=== PATIENT | female | born 2000 | race Caucasian/White ===

== ENCOUNTER 2020-03-28 07:11 | Outpatient (REF) | payer OTHER, SELFPAY ==
[2020-03-28 11:27] LABS: MANUAL DIFF FLAG SCAN; PLT CLUMP 1; SCAN SMEAR FLAG 1
[2020-03-28 11:29] LABS: Basophils Percent Auto 0.4 % (0-2); Eosinophils Absolute Auto 0.1 X10*3/uL (0.0-0.4); Imm Gran Abs Auto 0.02 X10*3/uL (0.00-0.03); Imm Gran Pct Auto 0.3 % (0.0-0.4); Lymphocytes Absolute Auto 1.4 X10*3/uL (1.2-4.9); Lymphocytes Percent Auto 17.8 % (20-40); Mean Corpuscular HGB Conc 32.5 g/dl (31.0-35.0); Mean Corpuscular Hemoglobin 30.7 pg (27.0-33.0); Mean Corpuscular Volume 94.3 fL (80-98); Mean Platelet Volume 9.3 fL (9.4-12.3); Monocytes Absolute Auto 0.7 X10*3/uL (0.1-1.2); Monocytes Percent Auto 9.4 % (2-11); Neutrophils Absolute Auto 5.5 X10*3/uL (2.0-8.3); Neutrophils Percent Auto 71.1 % (45-73); Red Blood Count 4.24 X10*6/uL (4.20-5.50); Red Cell Distribution Width 12.1 % (11.0-16.0); White Blood Count 7.8 X10*3/uL (4.8-10.8)
[2020-03-28 11:57] LABS: Alanine Aminotransferase 11 U/L (0-31); Anion Gap 12 (12-20); Aspartate Amino Transferase 16 U/L (5-31); Blood Urea Nitrogen 11 mg/dL (9-16); Calcium 9.3 mg/dL (8.4-10.2); Carbon Dioxide 28 mmol/L (22-29); Chloride 104 mmol/L (96-108); Cholesterol 127 mg/dL; Estimated Glomerular Filt Rate > 60; Glucose Fasting 79 mg/dL (60-99); HDL Cholesterol 47 mg/dL; LDL Cholesterol Calculated 65 mg/dl; Potassium 4.4 mmol/l (3.3-5.1); Sodium 140 mmol/L (135-145); Triglycerides 76 mg/dL
[2020-03-28 12:15] LABS: SLIDE REVIEW VERIFIED
[2020-03-28 12:20] LABS: TSH reflex Free T4 1.78 mIU/mL (0.32-4.0)
[2020-03-28 13:12] LABS: Vitamin B12 334 pg/mL (200-900)
== END 2020-03-28 07:12 | disposition home or self-care (01) ==
LOC: HO.HMGCLDS 07:11
PROVIDERS: PCP Internal Medicine; Visit Provider Internal Medicine
DX: Z00.00 Encounter for general adult medical examination without abnormal findings (principal); R63.6 Underweight; I10 Essential (primary) hypertension; Z78.9 Other specified health status
CPT/HCPCS: 36415; 80048; 80061; 82607; 84443; 84450; 84460; 85025

== ENCOUNTER 2022-12-24 10:12 | Outpatient (AMB) | payer BC, SELFPAY ==
--- NOTE | 2022-12-24 10:15 | MHC.OFFWIV ---
Intake Vital Signs 12/24/22 10:17 Height 5 ft 3 in Weight 108 lb BMI 19.1 BP 98/56 L Blood Pressure Location Rt brachial Position Sitting Pulse 72 Pulse Source Pulse Oximeter Temp 98.9 F Temp Source Temporal Artery Scan Pulse Oximetry (%) 99 Oxygen Delivery Method Room Air Intake Visit Reasons: Ep, Sore throat Intake Note: Patient here for bad sore throat for a couple days. 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 Patient Tobacco Use Status: Never used Tobacco Allergies penicillin G Allergy (Unknown, Verified 12/24/22 10:30) hives penicillin V Allergy (Unknown, Verified 12/24/22 10:30) Hives Do you need a note to return to daycare/school/sports/work: Yes HPI HPI Comments History of Present Illness Details Here today with complaints of sore throat that started on Thursday. 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 The kids also had sore throats. Unsure if they were strep positive her not. In addition to the sore throat is having painful swallowing and a cough. Reports her cough is worse at night is keeping her up. She did have a low-grade temp of 99.3 degrees on Thursday. She denies history of asthma. Has been using cough drops to help with very minor relief. She reports she is up-to-date on vaccines. She denies chills, ear pain, runny nose, abdominal pain. [facility] Medical History Depression with anxiety History of ADHD Strict vegetarian diet Underweight Surgical History History of placement of ear tubes Family History Father Medical history non-contributory Mother HTN (hypertension) ADHD Anxiety Depression Substance use disorder Maternal Grandmother Breast cancer Social History (Updated 03/29/21 @ 09:47 by Frieda Box MD) Housing: House Alcohol intake: current Alcohol intake frequency: a few times a month Patient Tobacco Use Status: Never used Tobacco e-Cigarette/Vaping Use: Never Used Current occupational status: employed Review of Systems Const All systems reviewed & are unremarkable except as noted in HPI and below Physical Exam Vital Signs: Last Vital Signs Temp 98.9 F 12/24/22 10:17 Pulse 72 12/24/22 10:17 BP 98/56 L 12/24/22 10:17 Pulse Ox 99 12/24/22 10:17 Oxygen Delivery Method Room Air 12/24/22 10:17 BMI result Body Mass Index 19.1 Const Other: Awake alert oriented in no acute distress Sclera and conjunctiva clear bilateral TM intact and clear bilat Nares clear, turbinates mildly erythematous Pharynx with diffuse erythema, no exudate, uvula midline, managing secretions Shotty palpable AC lymphadenopathy bilat rrr Lung sounds clear bilateral Skin pink warm dry and Results AMB Rapid Strep AMB Rapid Strep Negative Last Edit by KELLY Lester on 12/24/22 10:28 Assessment & Plan Assessment & Plan (1) Cough: Code(s): R05.9 - Cough, unspecified (2) Pharyngitis: Code(s): J02.9 - Acute pharyngitis, unspecified Orders: Orders AMB Rapid Strep Screen Today Z13.9 - Encounter for screening, unspecified SARS-CoV2/FLU/RSV Today J02.9 - Acute pharyngitis, unspecified, R05.9 - Cough, unspecified Medications: New benzonatate 100 mg PO TID 10 days PRN 30 caps 1RF cough Patient Instructions: Negative for strep today. Viral swab obtained. Advised that while waiting for results to treat supportively with [id number] analgesics, rest, fluids. Okay to continue cough drops of this provides some relief. Will prescribed benzonatate to help cough especially at night. She will be called with the results of the viral swab. Educated that if the swab comes back positive for flu RSV or COVID that these are all viruses and do not require any additional treatment. Even if the swab is negative his lungs are symptoms are improving her symptoms are likely related to a viral illness. However should her sore throat worsen or continue to include painful swallowing I did recommend a re-evaluation for strep throat. Coding Level of Care Code Est Pt Level 3 (07518) Diagnoses Cough R05.9 Pharyngitis J02.9
[2022-12-24 10:17] VITALS: BP 98/56; PULSE 72; TEMP 37.2; O2SAT 99; BMI 19.1
== END 2022-12-24 11:23 | disposition home or self-care (01) ==
PROVIDERS: PCP Internal Medicine; Visit Provider Nurse Practitioner Family
DX: R05.9 Cough, unspecified (principal); J02.9 Acute pharyngitis, unspecified; Z13.9 Encounter for screening, unspecified
CPT/HCPCS: 87880; 99213

== ENCOUNTER 2022-12-24 13:01 | Outpatient (REF) | payer BC, SELFPAY ==
[2022-12-24 14:13] LABS: Influenza A PCR NEGATIVE (Negative); Influenza B PCR NEGATIVE (Negative); Resp Syncy Virus RNA Qual PCR NEGATIVE (Negative); SARS COV2 PCR INHOUSE NEGATIVE (Negative)
== END 2022-12-24 13:02 | disposition home or self-care (01) ==
LOC: HO.LNP 13:01
PROVIDERS: Visit Provider Nurse Practitioner Family
DX: J02.9 Acute pharyngitis, unspecified (principal); R05.9 Cough, unspecified; Z20.822 Contact with and (suspected) exposure to COVID-19
CPT/HCPCS: 0241U

== ENCOUNTER 2023-02-23 08:13 | Outpatient (AMB) | payer BC, SELFPAY ==
--- NOTE | 2023-02-23 08:16 | A.OFFPC_ITS ---
Vital Signs 02/23/23 08:25 Height 5 ft 3 in Weight 112 lb BMI 19.8 BP 100/60 Blood Pressure Location Rt brachial Position Sitting Pulse 94 Pulse Source Pulse Oximeter Pulse Oximetry (%) 98 Oxygen Delivery Method Room Air Intake Visit Reasons: Physical Exam Intake Note: Pt is here today for her PE Is last menstrual period known: Yes Last menstrual period: 02/17/23 Allergies penicillin G Allergy (Unknown, Verified 02/23/23 08:34) hives penicillin V Allergy (Unknown, Verified 02/23/23 08:34) Hives Medication List - Last Reconciled 02/23/23 by Frieda Box MD multivitamin 1 tab PO DAILY vitamin B complex (B Complex-Vitamin B12 tablet) 1 tab PO DAILY Tobacco use date assessed: 02/23/23 Dental Screening Dental Screen Date: 02/23/23 Did you have a dental visit in the last 12 months?: Yes Did you have a dental problem in the last 6 months where you did not have access to dental care?: No Was dental information given to patient?: Patient has dentist HPI Physical Exam HPI Details 22-year-old lady here today for physical exam. .. Has been feeling well, no complaints at present time. She has never had a cervical cancer scr eening done, currently sexually active, uses condoms. Patient states that there is family history of factor 5 Leiden mutation her mother side. [facility] Medical History (Updated 02/23/23 @ 08:59 by Frieda Box MD) Pescetarian Family history of clotting disorder History of depression History of ADHD Surgical History History of placement of ear tubes Family History Father Medical history non-contributory Mother HTN (hypertension) ADHD Anxiety Depression Substance use disorder Maternal Grandmother Breast cancer Social History Housing: House Alcohol intake: current Alcohol intake frequency: a few times a month Patient Tobacco Use Status: Never used Tobacco e-Cigarette/Vaping Use: Never Used Current occupational status: employed Cognitive needs: No Hearing needs: No Vision needs: No Female Reproductive History Menstrual Date of last menstrual period: 02/17/23 Questionnaire PHQ-9 Over the last 2 weeks, how often have you been bothered by any of the following problems? 1. Little interest or pleasure in doing things: not at all 2. Feeling down, depressed, or hopeless: not at all 3. Trouble falling or staying asleep, or sleeping too much: not at all 4. Feeling tired or having little energy: several days 5. Poor appetite or overeating: not at all 6. Feeling bad about yourself - or that you are a failure or have let yourself or your family down: not at all 7. Trouble concentrating on things, such as reading the newspaper or watching television: not at all 8. Moving or speaking so slowly that other people could have noticed. Or the opposite - being so fidgety or restless that you have been moving around a lot more than usual: not at all 9. Thoughts that you would be better off or of hurting yourself in some way: not at all Total score: 1 Depression Screening Interpretation: Negative [id number] - PHQ-9 Billing: Yes Source: Developed by Drs. Bolivar Galdamez, Dahlia Soria, Demarco Nixon and colleagues, with an educational susan from [employer]. Thrive Questionnaire Date Thrive assessed: 02/23/23 I am a: Patient What is your living situation today?: I have a steady place to live Within the past 12 months, did the food you bought not last and you didn't have the money to get more?: Never true Within the past 12 months, did you worry whether your food would run out before you got money to buy more?: Never true Do you have trouble paying for medicines?: No Do you have trouble getting transportation to medical appointments?: No Do you have trouble paying your heating and electricity bill?: No Do you have trouble taking care of your child, family member or friend?: No Do you have trouble with day-to-day activities such as bathing, preparing meals, shopping, managing finances, etc.?: No Are you currently unemployed and looking for a job?: No Are you interested in more education?: I choose not to answer this question Please select the resources that you would like help with: None Currently or been in a relationship where the following occur: no concerns reported AUDIT C Alcohol Use Questionnaire (AUDIT-C) 1. How often do you have a drink containing alcohol?: 2-4 times a month 2. How many drinks containing alcohol do you have on a typical day when you are drinking?: 1 or 2 3. How often do you have six or more drinks on one occasion?: Never Total Score: 2 HAYLEY-7 AMB Questionnaire HAYLEY-7 Date HAYLEY - 7 assessed: 02/23/23 Feeling nervous, anxious, or on edge: 0 = Not at all Not being able to stop or control worryin = Not at all Worrying too much about different things: 0 = Not at all Trouble relaxin = Not at all Being so restless that it is hard to sit still: 0 = Not at all Becoming easily annoyed or irritable: 0 = Not at all Feeling afraid as if something awful might happen: 0 = Not at all Total HAYLEY-7 score (0-4 normal; 5-9 mild; 10-14 moderate; 15-21 severe): 0 Source: Developed by Drs. Bolivar Galdamez, Dahlia Soria, Demarco Nixon and colleagues, with an educational susan from [employer]. HAYLEY-7 Assessment Billing HAYLEY-7 Assessment Tool: HAYLEY-7 Assessment 62941 Review of Systems Const Denies body aches, Denies fatigue, Denies fever(s), Denies headache(s) and Denies weakness Eyes Details: has myopia, currently being followed at [facility] Reports blurry vision, Denies change in vision, Denies eye discharge and Denies itchy eyes ENT Denies dizziness, Denies headache(s), Denies nasal congestion, Denies nasal discharge and Denies sore throat Card Denies chest pain, Denies lightheadedness, Denies palpitations and Denies dyspnea Resp Denies chest congestion, Denies cough, Denies dyspnea and Denies wheezing GI Denies abdominal pain, Denies change in bowel habits and Denies heartburn Denies urinary frequency, Denies dysuria and Denies urinary urgency Musc Denies back pain, Denies myalgias, Denies arthralgias and Denies joint swelling Skin/Breast Denies lesions and Denies rash Neuro Denies dizziness, Denies headache(s) and Denies weakness Psych Denies anxiety, Denies depression and Denies difficulty concentrating Endo Denies fatigue, Denies polydipsia, Denies polyuria and Denies palpitations Lonny/Lymph Denies easy bruising Aller/Immun Denies itchy eyes, Denies seasonal rhinorrhea and Denies wheezing Physical exam (Primary Care) Vital Signs: Last Vital Signs Pulse 94 02/23/23 08:25 BP 100/60 02/23/23 08:25 Pulse Ox 98 02/23/23 08:25 Oxygen Delivery Method Room Air 02/23/23 08:25 BMI result Body Mass Index 19.8 Tobacco/Smoking Status: Tobacco use Status Tobacco use date assessed 02/23/23 02/23/23 08:17 Patient Tobacco Use Status Never used Tobacco 02/23/23 08:17 e-Cigarette/Vaping Use Never Used 02/23/23 08:17 PHQ-9: PHQ-9 Score PHQ-9: Total score 1 02/23/23 09:03 Depression Screening Interpretation: Negative Thrive Assessment: Date of Thrive Assessment Date Thrive assessed 02/23/23 02/23/23 08:31 Currently or been in a relationship where the following occur: no concerns reported Const General: cooperative, comfortable and no acute distress Orientation/consciousness: patient oriented x3 Limitations: no limitations HENMT Ears: hearing grossly normal bilaterally, external ears normal, TM's normal bilaterally and EAC's normal General nose exam: Normal external nose present, Normal nasal mucous membranes and turbinates present and No nasal discharge present Mouth: Normal oral and palatal mucosa present, oropharynx normal and moist mucous membranes Throat: Yes posterior oropharynx normal Eyes General: appearance normal, both eyes and all related structures Conjunctivae: conjunctivae normal Pupils: Equal, round and reactive pupils present EOM: EOMs intact bilaterally Neck Neck: Yes full ROM, Yes no lymphadenopathy and Yes supple Chest Breast/axilla palpation: normal palpation of the breasts Resp Effort & Inspection: normal respiratory effort and able to speak in complete sentences Auscultation: clear to auscultation bilaterally Cardio Rate: regular rate Rhythm: regular rhythm Heart sounds: S1 normal heart sound present and S2 normal heart sound present GI Inspection: Yes normal to inspection Palpation (GI): Soft to palpation, nontender and no masses Auscultation: normal bowel sounds Back/Spine/Pelvis Cervical Spine: cervical ROM normal Thoracic/Lumbar Spine: thoracic and lumbar spine normal to inspection Skin General skin exam: no rashes or lesions noted Neuro General: patient oriented x3, gait normal, tone normal, moves all extremities, Normal light touch and pain sensation and no focal motor deficits Cranial nerves: Yes Equal, round and reactive pupils present Cognition (Neuro): normal cognition Gait exam (Neuro): Normal gait present Motor exam (neuro): 5/5 motor strength present throughout Extrem General: Yes full ROM, Yes no joint enlargement, Yes no pedal edema, Yes no calf tenderness and Yes normal gait Psych Appearance: grossly normal Mental Status: mental status grossly normal Speech and movement: Normal speech and movement present Affect: normal affect Attitude: cooperative Thought process: Normal thought process present Assessment and Plan Assessment & Plan (1) Annual visit for general adult medical examination with abnormal findings: Code(s): Z00.01 - Encounter for general adult medical examination with abnormal findings Plan: Will check appropriate labs. Recommended dental visit every 6 months and regular eye exams, at least every 2 years. Take adequate calcium in diet and vitamin-D 3 at 2000 IU per cap once a day, in addition to weight-bearing exercises to help maintain good muscle tone and weight control. Instructed to do self-breast exam, and reminded to get her yearly flu shot and get her COVID booster. Up-to-date with her Tdap (2) Pescetarian: Code(s): Z78.9 - Other specified health status (3) Family history of clotting disorder: Code(s): Z83.2 - Family history of diseases of the blood and blood-forming organs and certain disorders involving the immune mechanism (4) Cervical cancer screening: Code(s): Z12.4 - Encounter for screening for malignant neoplasm of cervix Plan: Patient [facility]erral to [facility] in [place] for her cervical ca ncer screening, would like to discuss other forms of control (5) control counseling: Code(s): Z30.09 - Encounter for other general counseling and advice on contraception Plan: Referred to [facility] Orders: Orders Glucose Fasting 02/23/23 Z00. - Encounter for general adult medical examination with abnormal findings, Z78.9 - Other specified health status, Z83.2 - Family history of diseases of the blood and blood-forming organs and certain disorders involving the immune mechanism Lipid Panel 02/23/23 Z00. - Encounter for general adult medical examination with abnormal findings, Z78.9 - Other specified health status, Z83.2 - Family history of diseases of the blood and blood-forming organs and certain disorders involving the immune mechanism Vitamin B12 and Folate 02/23/23 Z00.01 - Encounter for general adult medical examination with abnormal findings, Z78.9 - Other specified health status, Z83.2 - Family history of diseases of the blood and blood-forming organs and certain disorders involving the immune mechanism Factor V Leiden 02/23/23 Z00. - Encounter for general adult medical examination with abnormal findings, Z78.9 - Other specified health status, Z83.2 - Family history of diseases of the blood and blood-forming organs and certain disorders involving the immune mechanism Protein S Activity reflex Ag 02/23/23 Z00. - Encounter for general adult medical examination with abnormal findings, Z78.9 - Other specified health status, Z83.2 - Family history of diseases of the blood and blood-forming organs and certain disorders involving the immune mechanism Anti-Thrombin III Activity 02/23/23 Z00. - Encounter for general adult medical examination with abnormal findings, Z78.9 - Other specified health status, Z83.2 - Family history of diseases of the blood and blood-forming organs and certain disorders involving the immune mechanism Lupus Anticoagulant Panel 02/23/23 Z00. - Encounter for general adult medical examination with abnormal findings, Z78.9 - Other specified health status, Z83.2 - Family history of diseases of the blood and blood-forming organs and certain disorders involving the immune mechanism Vitamin D 25-OH Total 02/23/23 Z00. - Encounter for general adult medical examination with abnormal findings, Z78.9 - Other specified health status, Z83.2 - Family history of diseases of the blood and blood-forming organs and certain disorders involving the immune mechanism Protein C Activity Reflex Ag 02/23/23 Z00. - Encounter for general adult medical examination with abnormal findings, Z78.9 - Other specified health status, Z83.2 - Family history of diseases of the blood and blood-forming organs and certain disorders involving the immune mechanism Referrals ANALYSIS DIRECTOR Referral Z12.4 - Encounter for screening for malignant neoplasm of cervix, Z30.09 - Encounter for other general counseling and advice on contraception Coding Level of Care Code Est Pt Prev Care 18-39y(64962) Diagnoses Annual visit for general adult medical examination with abnormal findings Z00.01 Pescetarian Z78.9 Family history of clotting disorder Z83.2 Cervical cancer screening Z12.4 control counseling Z30.09 Additional Codes HAYLEY-7 Assessment Billing - HAYLEY-7 Assessment Tool: HAYLEY-7 Assessment [id number] ([id number])
[2023-02-23 08:25] VITALS: BP 100/60; PULSE 94; O2SAT 98; BMI 19.8
== END 2023-02-23 08:53 | disposition home or self-care (01) ==
PROVIDERS: Visit Provider Internal Medicine
DX: Z00.00 Encounter for general adult medical examination without abnormal findings (principal); Z78.9 Other specified health status; Z83.2 Family history of diseases of the blood and blood-forming organs and certain disorders involving the immune mechanism
CPT/HCPCS: 99395

== ENCOUNTER 2023-09-10 11:35 | Outpatient (AMB) | payer BC, SELFPAY ==
[2023-09-10 11:54] VITALS: BP 116/60; PULSE 71; TEMP 36.8; O2SAT 99; BMI 19.3
--- NOTE | 2023-09-10 11:54 | MHC.OFFWIV ---
Intake Vital Signs 09/10/23 11:54 Height 5 ft 3 in Weight 109 lb BMI 19.3 BP 116/60 Blood Pressure Location Lt brachial Position Sitting Pulse 71 Pulse Source Pulse Oximeter Temp 98.2 F Temp Source Temporal Artery Scan Pulse Oximetry (%) 99 Oxygen Delivery Method Room Air Intake Visit Reasons: EP ?Strep Intake Note: pt is here today for strep started yesterday Patient Tobacco Use Status: Never used Tobacco Allergies penicillin G Allergy (Unknown, Verified 09/10/23 11:57) hives penicillin V Allergy (Unknown, Verified 09/10/23 11:57) Hives Do you need a note to return to daycare/school/sports/work: Yes HPI EP ?Strep HPI Details This is a 23-year-old female patient who presents today with a 2 day history of sore throat/painful swallowing. 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 She denies any fever or chills. Denies any respiratory symptoms. Has felt somewhat fatigued/achy. [facility] Medical History Pescetarian Family history of clotting disorder History of depression History of ADHD Surgical History History of placement of ear tubes Family History Father Medical history non-contributory Mother HTN (hypertension) ADHD Anxiety Depression Substance use disorder Maternal Grandmother Breast cancer Social History Housing: House Alcohol intake: current Alcohol intake frequency: a few times a month Patient Tobacco Use Status: Never used Tobacco e-Cigarette/Vaping Use: Never Used Current occupational status: employed Cognitive needs: No Hearing needs: No Vision needs: No Review of Systems Const All systems reviewed & are unremarkable except as noted in HPI and below Physical Exam Vital Signs: Last Vital Signs Temp 98.2 F 09/10/23 11:54 Pulse 71 09/10/23 11:54 BP 116/60 09/10/23 11:54 Pulse Ox 99 09/10/23 11:54 Oxygen Delivery Method Room Air 09/10/23 11:54 BMI result Body Mass Index 19.3 Const General: cooperative, healthy appearing and no acute distress HEENT Head: Yes normal to inspection Ears: hearing grossly normal bilaterally General nose exam: Normal external nose present Throat: Yes posterior oropharynx abnormal (Tonsillar hypertrophy, erythema, exudate present) Neck Other: Mild anterior cervical lymphadenopathy R>L Resp Effort & Inspection: normal respiratory effort Skin General skin exam: no rashes or lesions noted Psych Appearance: grossly normal Mental Status: mental status grossly normal Speech and movement: Normal speech and movement present Results AMB Rapid Strep AMB Rapid Strep Negative Last Edit by Lance Cedillo MA on 09/10/23 12:28 Assessment & Plan Assessment & Plan (1) Strep pharyngitis: Code(s): J02.0 - Streptococcal pharyngitis Plan: Rapid strep in the office was negative, however patient has symptoms consistent with strep and erythematous and hypertrophic tonsils with exudate. We will treat for strep. PCN allergy, patient reports as a rash as a child. We will try cephalexin BID 10 days. Reviewed small potential for cross reactivity, and to notify office if any allergic reaction occurs. We reviewed indications, use, possible side effects of medication. Advised throat sprays/lozenges as needed, in addition to Tylenol/Motrin as needed for symptom management. Work note was provided. If she does not improve with treatment, she can return to the clinic for further evaluation. Patient agrees to plan. Medications: New cephalexin Take twice a day for 10 days. If you develop any reaction please call office. 500 mg PO BID 10 days 20 caps 0RF J02.0 - Streptococcal pharyngitis Coding Level of Care Code Est Pt Level 3 (28659) Diagnoses Strep pharyngitis J02.0
== END 2023-09-10 12:51 | disposition home or self-care (01) ==
PROVIDERS: PCP Internal Medicine; Visit Provider Nurse Practitioner Family
DX: J02.0 Streptococcal pharyngitis (principal)
CPT/HCPCS: 87880; 99213

== ENCOUNTER 2023-10-13 13:33 | Outpatient (AMB) | payer BC, SELFPAY ==
[2023-10-13 13:44] VITALS: BP 116/60; PULSE 92; TEMP 36.7; O2SAT 98; BMI 18.8
--- NOTE | 2023-10-13 13:44 | AM.OFFWIN_ITS ---
Intake Vital Signs 10/13/23 13:44 Height 5 ft 3 in Weight 106 lb BMI 18.8 BP 116/60 Blood Pressure Location Lt brachial Position Sitting Pulse 92 Pulse Source Pulse Oximeter Temp 98.0 F Temp Source Temporal Artery Scan Pulse Oximetry (%) 98 Oxygen Delivery Method Room Air Intake Visit Reasons: EST/ sore throat (lobby masked) Intake Note: pt is here today for sore throat started yesterday Patient Tobacco Use Status: Never used Tobacco Allergies penicillin G Allergy (Unknown, Verified 10/13/23 14:12) hives penicillin V Allergy (Unknown, Verified 10/13/23 14:12) Hives Medication List - Last Reconciled 10/13/23 by PANDA Gutierrez azithromycin For 500 mg dose pack: take 500 mg once daily for 3 days PO cephalexin 500 mg PO BID 10 days multivitamin 1 tab PO DAILY prednisone 20 mg PO DAILY vitamin B complex (B Complex-Vitamin B12 tablet) 1 tab PO DAILY Do you need a note to return to daycare/school/sports/work: No HPI HPI Comments History of Present Illness Details Patient is a 23-year-old female in today for sick visit. Patient has history of strep throat. States that 1 day prior she developed sore throat noticed that she had white stuff on her tonsils. States low-grade fever. Able to eat and drink without difficulty. 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 Patient was treated with cephalosporin 3 weeks prior to this appointment. States that she got better and the symptoms returned 1 day prior to this appointment. Patient's rapid strep in office was negative. However on physical exam patient does have tonsils +2 with peritonsillar exudate. +Erythema of the uvula tonsils and anterior pillar. [facility] Medical History Pescetarian Family history of clotting disorder History of depression History of ADHD Surgical History History of placement of ear tubes Family History Father Medical history non-contributory Mother HTN (hypertension) ADHD Anxiety Depression Substance use disorder Maternal Grandmother Breast cancer Social History Housing: House Alcohol intake: current Alcohol intake frequency: a few times a month Patient Tobacco Use Status: Never used Tobacco e-Cigarette/Vaping Use: Never Used Current occupational status: employed Cognitive needs: No Hearing needs: No Vision needs: No Review of Systems Const All systems reviewed & are unremarkable except as noted in HPI and below Physical Exam Vital Signs: Last Vital Signs Temp 98.0 F 10/13/23 13:44 Pulse 92 10/13/23 13:44 BP 116/60 10/13/23 13:44 Pulse Ox 98 10/13/23 13:44 Oxygen Delivery Method Room Air 10/13/23 13:44 BMI result Body Mass Index 18.8 Const Other: Appearance: Alert.? Oriented X3.? No acute distress.? Head: Normocephalic, ENT: Pharynx erythema. + Tonsillar exudate. Tonsils +2. Neck: Normal inspection.? Neck supple.?No lymphadnopathy. CVS: Normal heart rate and rhythm.? Pulses normal.? Respiratory: No respiratory distress.? Breath sounds normal.? Neuro: Oriented X 3.? Results AMB Rapid Strep AMB Rapid Strep Negative Last Edit by Luis López MA on 10/13/23 14:14 Assessment & Plan Assessment & Plan (1) Strep throat: Comment: Patient will be given azithromycin and prednisone. Patient has been educated that she would benefit from allergy test determine severity of her penicillin allergy is that has occult standard for strep throat. Patient has been educated on hygiene techniques and proper use of PPE to avoid strep infections in the future. She has been educated on signs of worsening symptoms and when to return to the walk-in or when to report to the ED. Code(s): J02.0 - Streptococcal pharyngitis Plan: Take your medications as prescribed. If you were prescribed antibiotics today, it is important that you take your medication to their entirety, do not skip any doses, do not finish them early. Follow-up with your primary care provider this week. Return to the emergency department with new or worsening symptoms. Such as fevers, chills, chest pain, shortness of breath, nausea, vomiting, dizziness, headache, vision changes, lethargy In case of emergency call 911 Plan follow up with PCP. Orders: Orders SARS-CoV2/FLU/RSV Today J06.9 - Acute upper respiratory infection, unspecified Medications: New prednisone 20 mg PO DAILY 5 tabs 0RF azithromycin For 500 mg dose pack: take 500 mg once daily for 3 days PO 3 tabs 0RF Coding Level of Care Code Est Pt Level 3 (67220) Diagnoses Strep throat J02.0 Time Spent (min) 23
== END 2023-10-13 16:21 | disposition home or self-care (01) ==
PROVIDERS: PCP Internal Medicine; Visit Provider Nurse Practitioner Primary Care
DX: J02.0 Streptococcal pharyngitis (principal)
CPT/HCPCS: 87880; 99213

== ENCOUNTER 2023-10-13 19:55 | Outpatient (REF) | payer BC, SELFPAY ==
[2023-10-13 20:51] LABS: Influenza A PCR NEGATIVE (Negative); Influenza B PCR NEGATIVE (Negative); Resp Syncy Virus RNA Qual PCR NEGATIVE (Negative); SARS COV2 PCR INHOUSE NEGATIVE (Negative)
== END 2023-10-13 19:56 | disposition home or self-care (01) ==
LOC: HO.LNP 19:55
PROVIDERS: Visit Provider Nurse Practitioner Primary Care
DX: J06.9 Acute upper respiratory infection, unspecified (principal)
CPT/HCPCS: 0241U

== ENCOUNTER 2024-03-29 09:11 | Outpatient (AMB) | payer BC, SELFPAY ==
--- NOTE | 2024-03-29 09:23 | MHC.OFFWIV ---
Intake Vital Signs 03/29/24 09:24 Height 5 ft 3 in Weight 108 lb BMI 19.1 BP 124/70 Blood Pressure Location Rt brachial Position Sitting Pulse 77 Pulse Source Pulse Oximeter Pulse Oximetry (%) 99 Oxygen Delivery Method Room Air Intake Visit Reasons: EP-facial swelling Intake Note: Patient here for swelling in mid face that has progressed within a month Patient Tobacco Use Status: Never used Tobacco Allergies penicillin G Allergy (Unknown, Verified 03/29/24 09:24) hives penicillin V Allergy (Unknown, Verified 03/29/24 09:24) Hives Do you need a note to return to daycare/school/sports/work: Yes HPI HPI Comments History of Present Illness Details Patient is a 24-year-old female complaining of bilateral eye swelling which she feels like is mostly underneath her eyes. She denies any change in her vision, headaches dizziness but does say she has seasonal allergies. She does not take it daily allergy pill. She tells me she went to an web designer a couple of years ago and was tested and found she was allergic to many things but declined allergy shots. She states she does have a little bit of a cough and congestion right now but the eye swelling preceded those symptoms. [facility] Medical History Pescetarian Family history of clotting disorder History of depression History of ADHD Surgical History History of placement of ear tubes Family History Father Medical history non-contributory Mother HTN (hypertension) ADHD Anxiety Depression Substance use disorder Maternal Grandmother Breast cancer Social History Housing: House Alcohol intake: current Alcohol intake frequency: a few times a month Patient Tobacco Use Status: Never used Tobacco e-Cigarette/Vaping Use: Never Used Current occupational status: employed Cognitive needs: No Hearing needs: No Vision needs: No Review of Systems Const All systems reviewed & are unremarkable except as noted in HPI and below Physical Exam Vital Signs: Last Vital Signs Pulse 77 03/29/24 09:24 BP 124/70 03/29/24 09:24 Pulse Ox 99 03/29/24 09:24 Oxygen Delivery Method Room Air 03/29/24 09:24 BMI result Body Mass Index 19.1 Const General: cooperative, healthy appearing, comfortable and no acute distress Orientation/consciousness: patient oriented x3 Limitations: no limitations HEENT Head: Yes normal to inspection Ears: hearing grossly normal bilaterally and external ears normal General nose exam: Normal external nose present, Normal nares present and No nasal discharge present Face and sinus: Yes normal facial exam Mouth: Normal oral and palatal mucosa present and moist mucous membranes Throat: Yes tonsils normal, Yes uvula midline, Yes posterior oropharynx abnormal (Erythema) and Yes cobblestoning Eyes General: appearance normal, both eyes and all related structures Neck Neck: Yes normal visual inspection Resp Effort & Inspection: normal respiratory effort, able to speak in complete sentences, no respiratory distress, not tachypneic, no tripod positioning and no use of accessory muscles Skin General skin exam: no rashes or lesions noted Neuro General: patient oriented x3 Extrem General: Yes normal to inspection and Yes no clubbing, cyanosis or edema Assessment & Plan Assessment & Plan (1) Seasonal allergies: Code(s): J30.2 - Other seasonal allergic rhinitis Plan: Likely due seasonal allergies, patient does not have obvious swelling in her face on exam, she did have cobblestoning in the back of her throat and history of seasonal allergies. Recommended she start taking an allergy pill daily. If no improvement in her symptoms, she should follow up with her PCP. Plan See above Coding Level of Care Code Est Pt Level 3 (58308) Diagnoses Seasonal allergies J30.2
[2024-03-29 09:24] VITALS: BP 124/70; PULSE 77; O2SAT 99; BMI 19.1
== END 2024-03-29 09:35 | disposition home or self-care (01) ==
PROVIDERS: PCP Internal Medicine; Visit Provider Physician Assistant
DX: J30.2 Other seasonal allergic rhinitis (principal)

== ENCOUNTER → 2024-03-29 09:11 | Outpatient (BNVA) | payer BC, SELFPAY | PROVIDERS: PCP Internal Medicine ==